=== PATIENT | female | born 1990 | race Caucasian/White ===

== ENCOUNTER 2022-08-11 04:27 | Emergency (ER) | payer BC, MEDICAID ==
[~2022-08-11] VITALS: Ht 162.6 cm; Wt 100.0 kg
[2022-08-11] MEDS ORDERED: T3 PO (05:22)
[2022-08-11] MEDS ORDERED: AMOX1TAB16 PO (05:22)
[2022-08-11 05:25] VITALS: BP 115/70
[2022-08-11] MEDS ORDERED: IBUPROFEN 400MG TABLET PO ONE (05:30)
== END 2022-08-11 05:35 | disposition home or self-care (01) ==
LOC: ER 04:27
DX: H66.92 Otitis media, unspecified, left ear (principal); F17.200 Nicotine dependence, unspecified, uncomplicated
CPT/HCPCS: 99282; 99283